=== PATIENT | female | born 1985 ===

== ENCOUNTER → 2023-05-25 12:30 | Outpatient (BNVA) | payer OTHER, MEDICAID, SELFPAY | PROVIDERS: PCP Nurse Practitioner Family; Visit Provider Urology ==

== ENCOUNTER 2023-12-18 13:31 | Outpatient (AMB) | payer MEDICAID, SELFPAY ==
--- NOTE | 2023-12-18 13:43 | A.OFFVIS_ITS ---
Intake Intake Visit Reasons: follow up/kidney stones Intake Note: Patient presents today for a follow-up on: Kidney Stones Meds- Tamsulosin Allergies to Antibiotic- ciprofloxacin, metoclopramide, Sulfa (Sulfonamide Antibiotics) Patient stated she was given Toradol after she was discharged from the ED Blood Thinners: None Industrial Editor Required: No Accompanied by: Mother Allergies ciprofloxacin Allergy (Mild, Verified 05/25/23 13:10) Unknown metoclopramide [From Reglan] Allergy (Mild, Verified 05/25/23 13:10) Unknown Sulfa (Sulfonamide Antibiotics) Allergy (Mild, Verified 05/25/23 13:10) Unknown tramadol Allergy (Mild, Verified 05/25/23 13:10) Unknown Medication List - Last Reconciled 12/18/23 by Leslie Smith MD cyclobenzaprine 10 mg PO TID PRN gabapentin 600 mg PO QID hydrochlorothiazide 25 mg PO QAM losartan 100 mg PO QAM naproxen 375 mg PO BID PRN oxycodone-acetaminophen 5-325 mg (Percocet) 1 tab PO Q6-8H PRN pantoprazole 40 mg PO DAILY HPI HPI Comments History of Present Illness Details Natasha is a 38 year old female who is here for evaluation for kidney stones. The patient had multiple ED visits to [facility] due to flank pain. She complains of intermittent left flank pain. I reviewed [facility] records. Renal US - 11/19/23-- Right kidney - 4mm stone, Left kidney 4mm stone, no hydronephrosis. CTAP wo IV contrast 12/01/23 and 12/14/23-- small bilateral kidney stones L>R. Left Kidney 4mm lower pole stone I have discussed ESWL. Discussed risks to include but not limited to, blood in the urine, bruising to the skin, kidney hematoma, possible need for another procedure if a stone fragment obstructs the ureter while passing, possible need to repeat procedure if stone is not completely fragmented. Plan:Left ESWL. KUB prior Review of Systems Const All systems reviewed & are unremarkable except as noted in HPI and below Reports no additional complaints Eyes Reports no additional complaints ENT Reports no additional complaints Card Denies dyspnea Resp Denies cough and Denies dyspnea GI Reports no additional complaints Reports no additional complaints Musc Reports no additional complaints Skin/Breast Denies rash and Denies unusual bruising Neuro Reports no additional complaints Psych Reports no additional complaints Endo Reports no additional complaints Liban/Lymph Reports no additional complaints Aller/Immun Reports no additional complaints Physical Exam Const General: cooperative, healthy appearing and no acute distress Orientation/consciousness: patient oriented x3 HEENT Head: Yes normal to inspection, Yes normocephalic and Yes atraumatic Eyes Conjunctivae: conjunctivae normal Neck Neck: Yes normal visual inspection and Yes trachea midline Chest Chest palpation & inspection: normal inspection of the chest Resp Effort & Inspection: normal respiratory effort Cardio Rate: regular rate GI Inspection: Yes normal to inspection Skin General skin exam: no rashes or lesions noted Neuro General: patient oriented x3 Extrem General: No edema Psych Appearance: grossly normal Results AMB Urinalysis, Automated UA Leukoctes 0 Destini/uL Last Edit by Jenifer Castro [facility] on 12/18/23 13 :54 UA Nitrite Negative Last Edit by Jenifer Castro [facility] on 12/18/23 13: 54 UA Urobilinogen 0.2 mg/dL Last Edit by Jenifer Castro [facility] on 4 13:54 UA Protein 0 mg/dL Last Edit by Jenifer Castro [facility] on 12/18/23 13:54 UA pH 6.5 Last Edit by Jenifer Castro [facility] on 12/18/23 13:54 UA Blood 200 Aniceto/uL Last Edit by Jenifer Castro [facility] on 12/18/23 13:5 4 UA Specific [place] 1.015 Last Edit by Jenifer Castro [facility] on 13:54 UA Ketone Negative Last Edit by Jenifer Castro [facility] on 12/18/23 13:5 4 UA Bilirubin 0 mg/dL Last Edit by Jenifer Castroantoine Castro [facility] on 12/18/23 13: 54 UA Glucose 0 mg/dL Last Edit by Jenifer Castroantoine Castro [facility] on 12/18/23 13:54 Results Reviewed Results Reviewed: Laboratory Last Values Urine pH (Auto) 6.5 12/18/23 13:52 Specific [place] (Auto) 1.015 12/18/23 13:52 Urine Protein (Auto) 0 mg/dL 12/18/23 13:52 Glucose (UA)(Auto) 0 mg/dL 12/18/23 13:52 Urine Ketones (Auto) Negative 12/18/23 13:52 Urine Blood (Auto) 200 Aniceto/uL 12/18/23 13:52 Urine Nitrite (Auto) Negative 12/18/23 13:52 Urine Bilirubin (Auto) 0 mg/dL 12/18/23 13:52 Urine Urobilinogen (Auto) 0.2 mg/dL 12/18/23 13:52 Leukocyte Esterase (Auto) 0 Destini/uL 12/18/23 13:52 Assessment & Plan Assessment & Plan (1) Bilateral kidney stones: Code(s): N20.0 - Calculus of kidney Plan Left ESWL percocet 5 mg # 6 naproxen 375 mg bid stop all NSAIDS 14 days prior to ESWL Orders: Orders AMB Urinalysis Automated 12/18/23 R33.9 - Retention of urine, unspecified, N20.0 - Calculus of kidney Medications: New naproxen 375 mg PO BID PRN 20 tabs 0RF pain oxycodone-acetaminophen 5-325 mg (Percocet) Partial Fill upon patient request. 1 tab PO Q6-8H PRN 6 tabs 0RF pain Patient Instructions: The patient had an opportunity to ask questions regarding treatment plan. All questions were answered. Imaging, Laboratory studies and physical exam results were discussed and reviewed in detail. No major barriers to understanding were identified. The patient expressed understanding and agreement with the above treatment plan. The patient is aware they should contact our office by phone for worsening of their current condition or the appearance of new symptoms. Compliance is encouraged with any medications and followup testing that is ordered. It is a privilege to be allowed the opportunity to participate in the urologic care of your patient. If you have any questions or concerns regarding treatment for the above conditions please do not hesitate to contact me. The office telephone contact is [phone]. This note is constructed in part using voice recognition software. While every effort has been made to ensure accuracy pheresis nurse errors may have been included. Yours sincerely, Leslie Smith MD Coding Level of Care Code New Pt Level 4 (83682) Diagnoses Bilateral kidney stones N20.0
== END 2023-12-18 14:51 | disposition home or self-care (01) ==
PROVIDERS: PCP Nurse Practitioner Family; Visit Provider Urology
DX: N20.0 Calculus of kidney (principal)
CPT/HCPCS: 99214

== ENCOUNTER → 2023-12-18 13:31 | Outpatient (BNVA) | payer MEDICAID, SELFPAY | PROVIDERS: PCP Nurse Practitioner Family; Visit Provider Urology | DX: N20.0 Calculus of kidney (principal) | CPT/HCPCS: 81003; 99212 ==

== ENCOUNTER 2024-01-04 12:03 | Outpatient (REF) | payer MEDICAID, SELFPAY ==
--- NOTE | ~2024-01-04 | XR_ITS ---
EXAMINATION: XR ABDOMEN KUB CLINICAL INDICATION: Renal calculus COMPARISON: None available. TECHNIQUE: 3 views of the abdomen. FINDINGS: The bowel gas pattern is normal with no evidence of ileus or obstruction. No unusual soft tissue calcifications are noted. The bones are unremarkable. XR/XR KUB IMPRESSION: Unremarkable examination.
== END 2024-01-04 12:04 | disposition home or self-care (01) ==
LOC: HO.XRAY 12:03
PROVIDERS: PCP Nurse Practitioner Family; Visit Provider Urology
DX: N20.0 Calculus of kidney (principal)
CPT/HCPCS: 74018

== ENCOUNTER 2024-01-06 08:06 | Day surgery (SDC) | payer MEDICAID, SELFPAY ==
[2024-01-06] VITALS (15 sets, daily range): BP systolic 150–201; BP diastolic 97–115; PULSE 68–91; RESP 16; TEMP 36.1–36.9; O2SAT 95–99; BMI 32.6
[2024-01-06] MEDS: Lactated Ringers 1,000 ML 100 ML IVCONT (08:56)
[2024-01-06] MEDS: Lactated Ringers 500 ML 999 ML IV (08:56)
--- NOTE | 2024-01-06 09:03 | P.CONAN_ITS ---
[facility] Active Problems Active Problems: All Active Problems (Updated 01/06/24 @ 08:28 by Bel Mclean) Flank pain (Acute) Bilateral kidney stones (Acute) Past Medical History Medical History Smoker Hypertension History of blood transfusion Functional capacity: independent ambulation Patient : No Surgical History Surgical History History of right oophorectomy History of hysterectomy History of carpal tunnel release [place] teeth extracted H/O lithotripsy Social History Social History Patient Tobacco Use Status: Current everyday Tobacco user Tobacco use type: Cigarette Cigarette Packs Per Day: 0.5 Cigarettes Per Day: 10.0 Years Smoked: 20 Smoked in Last 30 Days: Yes Use of substances other than those prescribed or required for medical reasons: No Are you DNR?: No Advance Directives: No Advance Directives Information Provided: Yes Meds Allergies Allergy/AdvReac Type Severity Reaction Status Date / Time ciprofloxacin Allergy Severe Vomiting Verified 01/06/24 08:32 metoclopramide [From Reglan] Allergy Severe Agitated Verified 01/06/24 08:32 tramadol Allergy Intermediate Hives Verified 01/06/24 08:32 Sulfa (Sulfonamide Allergy Mild Family Verified 01/06/24 08:32 Antibiotics) history Active Medications: Current Medications Lactated Ringer's (Lr) 1,000 mls @ 100 mls/hr IVCONT .Q10H MARIO Last Admin: 01/06/24 08:56 Dose: 100 mls/hr Home Medications Medication Instructions Recorded Confirmed Last Taken Type cyclobenzaprine 10 mg tablet 10 mg PO TID PRN Pain 05/25/23 01/06/24 Unknown History gabapentin 600 mg tablet 600 mg PO QID 05/25/23 01/06/24 Unknown History losartan 100 mg tablet 100 mg PO QAM 05/25/23 01/06/24 01/05/24 History pantoprazole 40 mg tablet,delayed 40 mg PO DAILY 05/25/23 01/06/24 Unknown History release Exam Height,Weight and Vital Signs: Height 5 ft 1 in Weight 78.29 kg Last Vital Signs Temp 98.4 F 01/06/24 08:35 Pulse 79 01/06/24 08:35 Resp 16 01/06/24 08:35 BP 163/115 H 01/06/24 08:35 Pulse Ox 99 01/06/24 08:35 O2 Del Method Room Air 01/06/24 08:35 Airway Mallampati Class: III TM Dist: >3cm Neck ROM: Full Heart: RRR Lungs: CTA Assessment and Plan Assessment Anesthesia Assessment: Anesthesia Plan Discussed and Smoking Cess. Discussed Final Anesthetic Review ASA Class: II Final Preanesthetic Review: Meds/Allgs Chart Reviewed, Consent Obtained/Reviewed and Anes Risks/Benef Reviewed Patient Risk: Low Anesthetic Plan Anesthetic Plan: GA Disposition: Standard PACU
--- NOTE | 2024-01-06 09:37 | MHC.SHP ---
Pre-Procedural Eval Section A - 24 Hr Update-Section A only Date of Service: 01/06/24 The patient is an INPATIENT: No The patient has been examined within 24 hours of the surgical procedure. The History & Physical has been completed within 30 days and I have reviewed it.: Yes Section B - Complete if H&P > 30 days Chief Complaint: Calculus of kidney Allergies: Allergies Allergy/AdvReac Type Severity Reaction Status Date / Time ciprofloxacin Allergy Severe Vomiting Verified 01/06/24 08:32 metoclopramide [From Reglan] Allergy Severe Agitated Verified 01/06/24 08:32 tramadol Allergy Intermediate Hives Verified 01/06/24 08:32 Sulfa (Sulfonamide Allergy Mild Family Verified 01/06/24 08:32 Antibiotics) history Plan Diagnosis/Plan: Unchanged I have reviewed the history and physical and performed a pertinent physical examination on my patient. No changes have occurred unless specified. Left ESWL. Discussed risks to include but not limited to, blood in the urine, bruising to the skin, kidney hematoma, possible need for another procedure if a stone fragment obstructs the ureter while passing, possible need to repeat procedure if stone is not completely fragmented. Time Spent With Patient Time: Total time managing care of this patient today ____ minutes.
--- NOTE | 2024-01-06 10:13 | W.PM.OPN ---
Operative Note Operative Note Date of Service: 01/06/24 Narrative: PreOperative Diagnosis:? ? Left Renal stone Post Operative Diagnosis:?Left? Renal stone Procedure:?Left? ESWL Surgeon:?Dr Leslie Smith Anesthesia:? General Indications for procedure: The patient understands there is a risk of bruising or hematoma to the kidney, infection, and stone migration following the procedure and subsequent intervention may be required.? - Imaging Left kidney stone 4 x 5 mm stone, lower pole Procedure: After informed consent was verified the patient was brought to the operating room and placed in a supine position.? Anesthesia was performed per protocol. Safety pause time-out was performed. Imaging was displayed in the room and laterality confirmed. ESWL was performed.?The stone was visualized on Ultrasound.? Shockwave lithotripsy was performed, after the first 300 shocks a pause for 3 minutes.? A total of 2500 shocks to a maximum of power of 18 with a maximum rate of 120 hertz.? Some fragmentation of the stone was appreciated. The patient tolerated the procedure well and was transferred to the recovery area upon completion. Complications: None
[2024-01-06] MEDS: fentaNYL citrate/PF 100 MCG/2 ML VIAL 25 MCG IVPUSH ×6 (10:35→11:42)
[2024-01-06] MEDS: oxyCODONE HCl Immed Release 5 MG TABLET 10 MG PO (10:38)
--- NOTE | 2024-01-06 11:17 | HO.POSTANES ---
Post Anesthesia Evaluation Post Anesthesia Evaluation Vital Signs: Vital Signs Temp Pulse Resp BP Pulse Ox O2 Del Method 01/06/24 10:55 70 16 177/110 H 96 Room Air 01/06/24 10:50 83 16 187/105 H 97 Room Air 01/06/24 10:45 82 16 177/110 H 97 Room Air 01/06/24 10:40 72 16 173/101 H 96 Room Air 01/06/24 10:40 16 01/06/24 10:35 68 16 201/105 H 96 Room Air 01/06/24 10:35 16 01/06/24 10:29 69 16 191/107 H 95 Room Air 01/06/24 10:24 97.6 F 78 16 175/115 H 95 Room Air 01/06/24 08:35 98.4 F 79 16 163/115 H 99 Room Air Anesthesia: General Endotracheal-GETA and General LMA Mental Status: Awake Pain Control: Satisfactory Nausea/Vomiting: None Hydration: Adequate Anesthesia-Related Issues: No Anes. Related Issues
--- NOTE | 2024-01-06 11:17 | HO.POSTANES ---
Post Anesthesia Evaluation Post Anesthesia Evaluation Date of Service: 01/06/24 Vital Signs: Vital Signs Temp Pulse Resp BP Pulse Ox O2 Del Method 01/06/24 10:55 70 16 177/110 H 96 Room Air 01/06/24 10:50 83 16 187/105 H 97 Room Air 01/06/24 10:45 82 16 177/110 H 97 Room Air 01/06/24 10:40 72 16 173/101 H 96 Room Air 01/06/24 10:40 16 01/06/24 10:35 68 16 201/105 H 96 Room Air 01/06/24 10:35 16 01/06/24 10:29 69 16 191/107 H 95 Room Air 01/06/24 10:24 97.6 F 78 16 175/115 H 95 Room Air 01/06/24 08:35 98.4 F 79 16 163/115 H 99 Room Air Anesthesia: General LMA Mental Status: Awake Pain Control: Satisfactory Nausea/Vomiting: None Hydration: Adequate Anesthesia-Related Issues: No Anes. Related Issues
== END 2024-01-06 12:24 | disposition home or self-care (01) ==
PROVIDERS: Visit Provider Urology
PROC: (CPT 50590; principal; 2024-01-06 09:40)
DX: N20.0 Calculus of kidney (principal); Z87.442 Personal history of urinary calculi; I10 Essential (primary) hypertension; Z79.899 Other long term (current) drug therapy; Z88.1 Allergy status to other antibiotic agents; Z88.2 Allergy status to sulfonamides; Z88.8 Allergy status to other drugs, medicaments and biological substances; F17.210 Nicotine dependence, cigarettes, uncomplicated
CPT/HCPCS: 50590; J0131; J0690; J1940; J2250; J2405; J2704; J3010

== ENCOUNTER → 2024-01-06 08:06 | Outpatient (BNV) | payer MEDICAID, SELFPAY | PROVIDERS: Visit Provider Urology | DX: N20.0 Calculus of kidney (principal) | CPT/HCPCS: 50590 ==

== ENCOUNTER 2024-02-15 11:22 | Outpatient (AMB) | payer MEDICAID, SELFPAY ==
--- NOTE | 2024-02-15 12:00 | A.OFFVIS_ITS ---
Intake Intake Visit Reasons: S/P ESWL/Ultrasound Intake Note: Patient presents today for a follow-up on S/P ESWL/Ultrasound Meds- None Allergies to Antibiotic- Cipro, Sulfa Blood Thinner- None Supervisor Word Processing Required: No Accompanied by: Self / Same As Patient Allergies ciprofloxacin Allergy (Severe, Verified 02/15/24 12:06) Vomiting metoclopramide [From Reglan] Allergy (Severe, Verified 02/15/24 12:06) Agitated tramadol Allergy (Intermediate, Verified 02/15/24 12:06) Hives Sulfa (Sulfonamide Antibiotics) Allergy (Mild, Verified 02/15/24 12:06) Family history HPI HPI Comments History of Present Illness Details 02/15/2024--the patient is status post le ft ESWL on 01/06/2024. She is being evaluated for bilateral nephrolithiasis. States she is doing well. She has not had follow-up imaging as yet. I have discussed diet modification. Will start vitamin B6 100 mg. Plan metabolic workup, follow-up in 3 months, ultrasound, renal prior Review of chart 12/18/2023--Natasha is a 38 year old fema le who is here for evaluation for kidney stones. The patient had multiple ED visits to [facility] due to flank pain. She complains of intermittent left flank pain. I reviewed [facility] records. Renal US - 11/19/23-- Right kidney - 4mm stone, Left kidney 4mm stone, no hydronephrosis. CTAP wo IV contrast 12/01/23 and 12/14/23-- small bilateral kidney stones L>R. Left Kidney 4mm lower pole stone. I have discussed ESWL. Discussed risks to include but not limited to, blood in the urine, bruising to the skin, kidney hematoma, possible need for another procedure if a stone fragment obstructs the ureter while passing, possible need to repeat procedure if stone is not completely fragmented. Plan:Left ESWL. KUB prior 02/15/2024--Plan--follow-up in 3 months, 24 hour urine and renal ultrasound prior [facility] Medical History Smoker Hypertension History of blood transfusion Surgical History History of right oophorectomy History of hysterectomy History of carpal tunnel release [place] teeth extracted H/O lithotripsy Social History Patient Tobacco Use Status: Current everyday Tobacco user Tobacco use type: Cigarette Cigarette Packs Per Day: 0.5 Cigarettes Per Day: 10.0 Years Smoked: 20 Results AMB Urinalysis, Automated UA Leukoctes 0 Destini/uL Last Edit by Jenifer Castro CMA on 02/15/24 12 :09 UA Nitrite Negative Last Edit by Jenifer Castro CMA on 02/15/24 12: 09 UA Urobilinogen 3.5 mg/dL Last Edit by Jenifer Castro CMA on 4 12:09 UA Protein 0 mg/dL Last Edit by Jenifer Castro CMA on 02/15/24 12:09 UA pH 7.5 Last Edit by Jenifer Castro CMA on 02/15/24 12:09 UA Blood 0 Aniceto/uL Last Edit by Jenifer Castro CMA on 02/15/24 12:09 UA Specific [place] 1.005 Last Edit by Jenifer Castro CMA on 12:09 UA Ketone Negative Last Edit by Jenifer Castro CMA on 02/15/24 12:0 9 UA Bilirubin 0 mg/dL Last Edit by Jenifer Castro CMA on 02/15/24 12: 09 UA Glucose 0 mg/dL Last Edit by Jenifer Castro CMA on 02/15/24 12:09 Results Reviewed Results Reviewed: Laboratory Last Values Urine pH (Auto) 7.5 02/15/24 12:08 Specific [place] (Auto) 1.005 02/15/24 12:08 Urine Protein (Auto) 0 mg/dL 02/15/24 12:08 Glucose (UA)(Auto) 0 mg/dL 02/15/24 12:08 Urine Ketones (Auto) Negative 02/15/24 12:08 Urine Blood (Auto) 0 Aniceto/uL 02/15/24 12:08 Urine Nitrite (Auto) Negative 02/15/24 12:08 Urine Bilirubin (Auto) 0 mg/dL 02/15/24 12:08 Urine Urobilinogen (Auto) 3.5 mg/dL 02/15/24 12:08 Leukocyte Esterase (Auto) 0 Destini/uL 02/15/24 12:08 Assessment & Plan Assessment & Plan (1) Bilateral kidney stones: Code(s): N20.0 - Calculus of kidney Plan follow-up in 3 months, 24 hour urine and renal ultrasound prior Orders: Orders AMB Urinalysis Automated 02/15/24 R33.9 - Retention of urine, unspecified US renal BI 2 Months R10.9 - Unspecified abdominal pain, N20.0 - Calculus of kidney Medications: New pyridoxine (vitamin B6) 100 mg PO DAILY 90 tabs 3RF Patient Instructions: The patient had an opportunity to ask questions regarding treatment plan. All questions were answered. No major barriers to understanding were identified. The patient expressed understanding and agreement with the above treatment plan. The patient is aware they should contact our office by phone for worsening of their current condition or the appearance of new symptoms. Compliance is e ncouraged with any medications and followup testing that is ordered. It is a privilege to be allowed the opportunity to participate in the urologic care of your patient. If you have any questions or concerns regarding treatment for the above conditions please do not hesitate to contact me. The office telephone contact is [phone]. This note is constructed in part using voice recognition software. While every effort has been made to ensure accuracy stud driver errors may have been included. Yours sincerely, Leslie Smith MD Coding Level of Care Code Global (75862) Diagnoses Bilateral kidney stones N20.0
== END 2024-02-15 12:29 | disposition home or self-care (01) ==
PROVIDERS: Visit Provider Urology
DX: N20.0 Calculus of kidney (principal)
CPT/HCPCS: 99024

== ENCOUNTER → 2024-02-15 11:27 | Outpatient (BNVA) | payer MEDICAID, SELFPAY | PROVIDERS: Visit Provider Urology | DX: R33.9 Retention of urine, unspecified (principal) | CPT/HCPCS: 81003; 99212 ==

== ENCOUNTER 2024-03-31 15:31 | Outpatient (REF) | payer MEDICAID, SELFPAY ==
--- NOTE | ~2024-03-31 | US_ITS ---
EXAMINATION: US RETROPERITONEAL COMPLETE (RENAL) CLINICAL INFORMATION: Unspecified abdominal pain. Status post ESWL on 01/06/2024. History of kidney stones. COMPARISON: None available. TECHNIQUE: Real-time imaging of the kidneys and bladder. FINDINGS: RIGHT KIDNEY: 11.8 x 5.0 x 5.2 cm (SAG x AP x TRV). The kidney is normal in size, contour, and echogenicity. Renal cortical thickness is normal. No focal parenchymal lesions. No hydronephrosis. 0.4 x 0.4 x 0.4 cm nonobstructing calculus is seen in the lower pole. LEFT KIDNEY: 11.0 x 5.7 x 5.0 cm (SAG x AP x TRV). The kidney is normal in size, contour, and echogenicity. Renal cortical thickness is normal. No calculi or focal parenchymal lesions. No hydronephrosis. US/US retroperitoneal comp IMPRESSION: 1. 0.4 cm nonobstructing calculus in the lower pole of the right kidney. 2. Normal appearance of the left kidney.
== END 2024-03-31 15:32 | disposition home or self-care (01) ==
LOC: HO.US 15:31
PROVIDERS: Visit Provider Urology
DX: R10.9 Unspecified abdominal pain (principal); N20.0 Calculus of kidney
CPT/HCPCS: 76770

== ENCOUNTER 2024-07-13 10:34 | Outpatient (REF) | payer MEDICAID, SELFPAY ==
[2024-07-13 12:24] LABS: Appearance Urine Clear; Color Urine Yellow; Glucose Urine UA Negative (Negative); Leukocyte Esterase Urine Negative (Negative); Nitrite Urine Negative (Negative); PH 5.5 (5.0-9.0); Urine Blood Negative (Negative); Urine Ketones Negative (Negative); Urine Protein Negative (Neg-Trace)
[2024-07-13 12:31] LABS: Bacteria Urine Trace (None Seen); Hyaline Casts Urine 0-2 /LPF (0-2); RBC Urine 0-2 /HPF (0-2); WBC Urine 0-5 /HPF (0-5)
== END 2024-07-13 10:35 | disposition home or self-care (01) ==
LOC: HO.LAB 10:34
PROVIDERS: PCP Nurse Practitioner Family; Visit Provider Urology
DX: R10.9 Unspecified abdominal pain (principal); N12 Tubulo-interstitial nephritis, not specified as acute or chronic
CPT/HCPCS: 81001; 87086

== ENCOUNTER 2024-08-08 12:56 | Outpatient (AMB) | payer MEDICAID, SELFPAY ==
--- NOTE | 2024-08-08 13:35 | MHC.OFFVIS ---
Intake Visit Reasons: follow up/litholink/U/S(SET) Intake Note: Patient is Present for Follow Up Ultrasound Patient has not done Litholink. Urology Medication: Tamsulosin, Vitamin B6 Antibiotic Allergies:Sulfa, Ciprofloxacin Blood Thinners:Plavix, Asprin Patient states she was at [facility] ER this weekend and was informed that she has two stones on her RIGHT side that are very small. Allergies ciprofloxacin Allergy (Severe, Verified 02/15/24 12:06) Vomiting metoclopramide [From Reglan] Allergy (Severe, Verified 02/15/24 12:06) Agitated tramadol Allergy (Intermediate, Verified 02/15/24 12:06) Hives Sulfa (Sulfonamide Antibiotics) Allergy (Mild, Verified 02/15/24 12:06) Family history Medication List - Last Reconciled 08/08/24 by Leslie Smith MD amlodipine 10 mg PO DAILY aspirin 81 mg PO DAILY chlorthalidone 25 mg PO QAM clopidogrel (Plavix) 75 mg PO DAILY cyclobenzaprine 10 mg PO TID PRN gabapentin 600 mg PO QID losartan 100 mg PO QAM ondansetron 8 mg PO BID-TID PRN 14 days oxybutynin chloride 5 mg PO Q8H PRN oxycodone 5 mg PO Q6-8H PRN pantoprazole 40 mg PO DAILY prednisone 20 mg PO DAILY 3 days pyridoxine (vitamin B6) 100 mg PO DAILY tamsulosin 0.4 mg PO BEDTIME 14 days HPI Comments Details: 08/08/24--Natasha is followed for nephrolithiasis. She has not completed 24 hour urine, states her mother threw it out by mistake. She has been in the emergency room in May and lost recently for the weekend. I reviewed CT scan results from May emergency room visit CTAP-multiple right renal calculi under 3 mm, left kidney no kidney stones. No hydronephrosis. The patient she had pain again on her right side and was passing a right kidney stone she states the checked another CT scan and told her that there were 2 stones in the right kidney. She states that since she was last seen in the office she had brain surgery for an aneurysm 03/19/2024 and is currently on blood thinners Plavix and aspirin. She is concerned about pain when she is passing stones, tamsulosin and 8 tablets oxycodone p.r.n. sent to pharmacy. 24 hour urine telehealth follow-up to review results. Review of chart 02/15/2024--the patient is status post left ESWL on 01/06/2024. She is being evaluated for bilateral nephrolithiasis. States she is doing well. She has not had follow-up imaging as yet. I have discussed diet modification. Will start vitamin B6 100 mg. Plan metabolic workup, follow-up in 3 months, ultrasound, renal prior 12/18/2023--Natasha is a 38 year old female who is here for evaluation for kidney stones. The patient had multiple ED visits to [facility] due to flank pain. She complains of intermittent left flank pain. I reviewed [facility] records. Renal US - 11/19/23-- Right kidney - 4mm stone, Left kidney 4mm stone, no hydronephrosis. CTAP wo IV contrast 12/01/23 and 12/14/23-- small bilateral kidney stones L>R. Left Kidney 4mm lower pole stone. I have discussed ESWL. Discussed risks to include but not limited to, blood in the urine, bruising to the skin, kidney hematoma, possible need for another procedure if a stone fragment obstructs the ureter while passing, possible need to repeat procedure if stone is not completely fragmented. Plan:Left ESWL. KUB prior COUNT INCLUDES THE [facility] Medical History Smoker Hypertension History of blood transfusion Surgical History History of right oophorectomy History of hysterectomy History of carpal tunnel release [place] teeth extracted H/O lithotripsy Social History Patient Tobacco Use Status: Current everyday Tobacco user Tobacco use type: Cigarette Cigarette Packs Per Day: 0.5 Cigarettes Per Day: 10.0 Years Smoked: 20 Review of Systems Const All systems reviewed & are unremarkable except as noted in HPI and below Reports no additional complaints Eyes Reports no additional complaints ENT Reports no additional complaints Card Reports no additional complaints Resp Reports no additional complaints GI Reports no additional complaints Reports as per HPI Musc Reports no additional complaints Skin/Breast Reports system reviewed and no additional complaints, except as documented Neuro Reports no additional complaints Psych Reports no additional complaints Endo Reports no additional complaints Liban/Lymph Reports no additional complaints Aller/Immun Reports no additional complaints Results AMB Urinalysis, Automated UA Leukoctes 0 Destini/uL Last Edit by Brissa Brower, A on 08/08/24 13:49 UA Nitrite Negative Last Edit by Brissa Brower, A on 08/08/24 13:49 UA Urobilinogen 1 mg/dL Last Edit by Brissa Brower, A on 08/08/24 13:49 UA Protein 15 mg/dL Last Edit by Brissa Brower, A on 08/08/24 13:49 UA pH 6.0 Last Edit by Brissa Brower, A on 08/08/24 13:49 UA Blood 200 Aniceto/uL Last Edit by Brissa Brower, A on 08/08/24 13:49 UA Specific [place]o 1.030 Last Edit by Brissa Brower, A on 08/08/24 13:49 UA Ketone Positive Last Edit by Brissa Brower, A on 08/08/24 13:49 UA Bilirubin 0 mg/dL Last Edit by Brissa Brower, A on 08/08/24 13:49 UA Glucose 0 mg/dL Last Edit by Brissa Brower, A on 08/08/24 13:49 Results Reviewed Results Reviewed: Laboratory Last Values Urine pH (Auto) 6.0 08/08/24 13:47 Specific [place] (Auto) 1.030 08/08/24 13:47 Urine Protein (Auto) 15 mg/dL 08/08/24 13:47 Glucose (UA)(Auto) 0 mg/dL 08/08/24 13:47 Urine Ketones (Auto) Positive 08/08/24 13:47 Urine Blood (Auto) 200 Aniceto/uL 08/08/24 13:47 Urine Nitrite (Auto) Negative 08/08/24 13:47 Urine Bilirubin (Auto) 0 mg/dL 08/08/24 13:47 Urine Urobilinogen (Auto) 1 mg/dL 08/08/24 13:47 Leukocyte Esterase (Auto) 0 Destini/uL 08/08/24 13:[address] scan report dated 06/14/2024 performed at [facility] [place] right kidney multiple renal calculi measuring under 3 mm left kidney within normal limits no hydronephrosis. Assessment & Plan Assessment & Plan (1) Flank pain: Code(s): R10.9 - Unspecified abdominal pain Category: Medical (2) Kidney stone: Code(s): N20.0 - Calculus of kidney Category: Medical (3) Renal colic: Code(s): N23 - Unspecified renal colic Category: Medical Plan tamsulosin and 8 tablets oxycodone p.r.n. sent to pharmacy. 24 hour urine telehealth follow-up to review results. Orders: Orders AMB Urinalysis Automated Today Z13.9 - Encounter for screening, unspecified Medications: New oxycodone Partial Fill upon patient request. 5 mg PO Q6-8H PRN 8 tabs 0RF pain Changed From tamsulosin 0.4 mg PO BEDTIME 14 days 14 caps 0RF N20.0 - Calculus of kidney To tamsulosin 0.4 mg PO BEDTIME 14 days PRN 14 caps 0RF for passing kidney stones N20.0 - Calculus of kidney Discontinued prednisone Discontinued Reason: Patient Completed Course 20 mg PO DAILY 3 days 3 tabs 0RF N20.0 - Calculus of kidney Patient Instructions: The patient had an opportunity to ask questions regarding treatment plan. The patient expressed understanding and agreement with the above treatment plan. The patient is aware they should contact our office by phone for worsening of their current condition or the appearance of new symptoms. Compliance is encouraged with any medications and followup testing that is ordered. It is a privilege to be allowed the opportunity to participate in the urologic care of your patient. If you have any questions or concerns regarding treatment for the above conditions please do not hesitate to contact me. The office telephone contact is [phone]. This note is constructed in part using voice recognition software. While every effort has been made to ensure accuracy carcass trimmer errors may have been included. Yours sincerely, Leslie Smith MD Coding Level of Care Code Est Pt Level 4 (65493) Diagnoses Flank pain R10.9 Kidney stone N20.0 Renal colic N23
== END 2024-08-08 14:12 | disposition home or self-care (01) ==
PROVIDERS: Referring Provider Nurse Practitioner Family; Visit Provider Urology
DX: R10.9 Unspecified abdominal pain (principal); N20.0 Calculus of kidney; N23 Unspecified renal colic; Z13.9 Encounter for screening, unspecified
CPT/HCPCS: 99214

== ENCOUNTER → 2024-08-08 12:56 | Outpatient (BNVA) | payer MEDICAID, SELFPAY | PROVIDERS: Visit Provider Urology | DX: N20.0 Calculus of kidney (principal); R10.9 Unspecified abdominal pain; N23 Unspecified renal colic | CPT/HCPCS: 81003; 99212 ==

== ENCOUNTER 2024-08-25 14:19 | Outpatient (REF) | payer MEDICAID, SELFPAY ==
[2024-08-25 15:54] LABS: Appearance Urine Clear; Color Urine Yellow; Glucose Urine UA Negative (Negative); Leukocyte Esterase Urine Trace (Negative); Nitrite Urine Negative (Negative); PH 6.5 (5.0-9.0); UMIC TRIGGER UA YES; Urine Blood Negative (Negative); Urine Ketones Trace mg/dL (Negative); Urine Protein Negative (Neg-Trace)
[2024-08-25 15:59] LABS: Bacteria Urine 1+ (None Seen); Hyaline Casts Urine 0-2 /LPF (0-2); RBC Urine 0-2 /HPF (0-2); WBC Urine 0-5 /HPF (0-5)
== END 2024-08-25 14:20 | disposition home or self-care (01) ==
LOC: HO.LAB 14:19
PROVIDERS: Visit Provider Urology
DX: R10.9 Unspecified abdominal pain (principal); N20.0 Calculus of kidney; N12 Tubulo-interstitial nephritis, not specified as acute or chronic
CPT/HCPCS: 81001; 87086

== ENCOUNTER 2024-09-07 14:49 | Outpatient (REF) | payer MEDICAID, SELFPAY ==
--- NOTE | ~2024-09-07 | US_ITS ---
EXAMINATION: US RETROPERITONEAL LIMITED (RENAL ONLY) CLINICAL INFORMATION: Renal colic. COMPARISON: Retroperitoneal ultrasound dated 03/31/2024. TECHNIQUE: Grayscale, Doppler, and cine images of the right and left kidney. FINDINGS: RIGHT KIDNEY: 10 x 4.7 x 4.4 cm (SAG x AP x TRV). The kidney is normal in size, contour, and echogenicity. Renal cortical thickness is normal. No calculi or focal parenchymal lesions. No hydronephrosis. LEFT KIDNEY: 11.4 x 5.3 x 4.8 cm (SAG x AP x TRV). The kidney is normal in size, contour, and echogenicity. Renal cortical thickness is normal. No calculi or focal parenchymal lesions. No hydronephrosis. US/US renal BI IMPRESSION: No hydronephrosis or nephrolithiasis. Electronically signed by: Veto Salinas MD 09/08/2024 08:44 AM EDT
== END 2024-09-07 14:50 | disposition home or self-care (01) ==
LOC: HO.US 14:49
PROVIDERS: Visit Provider Urology
DX: N20.0 Calculus of kidney (principal); R10.9 Unspecified abdominal pain
CPT/HCPCS: 76775

== ENCOUNTER 2024-11-11 11:00 | Outpatient (REF) | payer MEDICAID, SELFPAY ==
[2024-11-11 11:43] LABS: Appearance Urine Clear; Color Urine Yellow; Glucose Urine UA Negative (Negative); Leukocyte Esterase Urine Negative (Negative); Nitrite Urine Negative (Negative); Specific Gravity - Urine 1.015 (1.005-1.025); Urine Blood Negative (Negative); Urine Ketones Negative (Negative); Urine Protein Negative (Neg-Trace)
[2024-11-11 11:45] LABS: Bacteria Urine 2+ (None Seen); RBC Urine 0-2 /HPF (0-2)
== END 2024-11-11 11:01 | disposition home or self-care (01) ==
LOC: HO.LAB 11:00
PROVIDERS: Visit Provider Urology
DX: N20.0 Calculus of kidney (principal); N12 Tubulo-interstitial nephritis, not specified as acute or chronic
CPT/HCPCS: 81001; 87086

== ENCOUNTER 2025-03-15 14:03 | Outpatient (REF) | payer MEDICAID, SELFPAY ==
[2025-03-15 15:02] LABS: Appearance Urine Clear; Color Urine Yellow; Glucose Urine UA Negative (Negative); Leukocyte Esterase Urine Negative (Negative); Nitrite Urine Negative (Negative); PH 5.5 (5.0-9.0); UMIC TRIGGER UA YES; Urine Blood Large (3+) (Negative); Urine Ketones Negative (Negative); Urine Protein Negative (Neg-Trace)
[2025-03-15 15:05] LABS: Bacteria Urine None Seen (None Seen); Hyaline Casts Urine 0-2 /LPF (0-2); RBC Urine >20 /HPF (0-2); WBC Urine 0-5 /HPF (0-5)
--- OUTSIDE RECORDS SUMMARY | 2025-03-15 16:49 | XMS_ITS ---
Author Organization [employer] [facility] Address [address] [place] [address] 7 [place] [address] Care Team Providers Care Rn Emergency Name Role Phone Sushila Griffin Unavailable Unavailable Kanwal East DO Primary Care Provider [phone] CM Complex Status:Outreach In Progress (Enrolling) Start date:03/03/2025 Enrollment reason:ADT Feed Case Team Name Relationship Phone Mirtha Sainz (Responsible Staff) Continued Care and Services Coordination
--- OUTSIDE RECORDS SUMMARY | 2025-03-15 16:49 | XMS_ITS | Encounter Summary ---
Author Organization [employer] [facility] Address [address] [facility] 7t [place] [address] Care Team Providers Care Cooker Operator Name Role Phone Shefali Winston Primary Care Provider Unavailable Sushila Griffin Unavailable Unavailable Jose Dunen Unavailable Unavail able Kanwal East DO Primary Care Provider [phone] Encounter Details Date Type Department Care Team (Late st Contact Info) Description 12/15/2023 Orders Only [facility] [address] [place] [address] Shefali Winston FNP Social History Tobacco Use Types Packs/Day Years Used Date Smoking Tobacco: Every Day Cigarettes Passive Smoke Exposure: Current Smokeless Tobacco: Never Alcohol Use Standard Drinks/Week Comments Never 0 (1 standard drink = 0.6 oz pur e alcohol) PHQ-2 Answer Date Recorded Patient Health Questionnaire-2 Score 0 06/10/2023 Alcohol Answer Date Recorded How often do you have a drink containing alcohol ? 0 11/17/2023 How many drinks containing a lcohol do you have on a typical day when you are drinking? 0 11/17/2023 How often do you have six or more drinks on one occasion? 0 11/17/2023 Housing Stability Answer Date Recorded What is your housing situation today? I have dilma chiang 09/15/[address] you li ve. Do you have problems with any of the following? None of the above 09/15/2023 Food Insecurity Answer Date Recorded Within the past 12 months, y ou worried that your food would run out before you got money to buy more: Never True 09/15/2023 Within the past 12 months,th e food you bought just didn't last and you didn't have enough money to get more: Never True Transportation Answer Date Recorded In the past 12 months, has l ack of transportation kept you from medical appts, meetings, work or from getting things needed for daily living? No 09/15/2023 Intimate Partner Violence Answer Date R ecorded Within the last year, have y ou been afraid of your partner or ex-partner? 2 11/17/2023 Within the last year, have y ou been humiliated or emotionally abused in other ways by your partner or ex-partner? 2 Within the last year, have y ou been kicked, hit, slapped, or otherwise physically hurt by your partner or ex-partner? 2 11/17/2023 Within the last year, have y ou been raped or forced to have any kind of sexual activity by your partner or ex-partner? 2 11/17/2023 Utilities Answer Date Recorded In the past 12 months, has t he electric, gas, oil or water company threatened to shut off services in your home? No 09/15/2023 Depression Answer Date Recorded Patient Health Questionnaire-2 Score 0 06/10/2023 Education Answer Date Recorded What is the highest level of school you have completed or the highest degree you have received? Bachelor's degree (e.g., BA, AB, BS) 04/01/2023 Comments Unknown Sex and Gender Information Value Date Recorded Sex Assigned at Female 03/31/2023 2:46 PM EDT Legal Sex Female 8:33 PM EDT Gender Identity Female 03/31/2023 2:46 PM EDT Sexual Orientation Straight 03/31/2023 2: 46 PM EDT documented as of this encounter Plan of Treatment Upcoming Encounters Date Type Department Care Team (Late st Contact Info) Description 03/30/2025 9:30 AM EDT Telemedicine [facility] MEDICAL [address] [place] [address] Ning Chau CNP [address] [place] [address] documented as of this encounter Procedures Procedure Name Priority Date/Time Associated Diagnosis Comments CBC WITH AUTO DIFFERENTIAL Routine 12/14/2023 COMPREHENSIVE METABOLIC PANEL Routine 12/14/2023 documented in this encounter Results * CBC auto differential (12/14/2023) Blood Venous blood specimen / Unknown Shefali Winston [facility] BLOOD ORDERABLES E dited Result - Final * Comprehensive Metabolic Panel (12/14/2023) Blood Venous blood specimen / Unknown Shefali Wniston [facility] BLOOD ORDERABLES E dited Result - Final documented in this encounter Visit Diagnoses Not on filedocumented in this encounter Care Teams Cooker Operator Relationship Specialty Start Date End Date Shefali Winston FNP PCP - General Family Medicine 12/02/22 08/24/24 Kanwal East DO [address] [place] [id number] PCP - General Family Medicine 08/25/24 Sushila Griffin Community Health Worker 04/06/23 Jose Dunne LICSW Community Health Worker Case Management 01/08/24 02/19/24 documented as of this encounter
--- OUTSIDE RECORDS SUMMARY | 2025-03-15 16:49 | XMS_ITS | Encounter Summary ---
Author Organization [facility] Address [address] [place] [address] Care Team Providers Care Paint And Table Edger Name Role Phone Shefali Winston Primary Care Provider Unavailable Sushila Griffin Unavailable Unavailable Kanwal East DO Primary Care Provider [phone] Encounter Details Date Type Department Care Team (Late st Contact Info) Description 08/22/2024 Orders Only [facility] [address] [place] [address] Shefali Winston FNP Social History Tobacco Use Types Packs/Day Years Used Date Smoking Tobacco: Every Day Cigarettes Passive Smoke Exposure: Current Smokeless Tobacco: Never Comments:States using nicoti ne patches now trying not to smoke when wearing Alcohol Use Standard Drinks/Week Comments Yes 0 (1 standard drink = 0.6 oz pur e alcohol) fernanda PHQ-2 Answer Date Recorded Patient Health Questionnaire-2 [...] 9:30 AM EDT Telemedicine [facility] MEDICAL [address] [place] [address] Ning Chau, JESUS [address] [place] [address] documented as of this encounter Procedures Procedure Name Priority Date/Time Associated Diagnosis Comments CT ABDOMEN PELVIS WO CONTRAST Routine 08/07/2024 8:49 AM EDT documented in this encounter Results * CT Abdomen Pelvis w/o Contrast (08/07/2024 8:49 AM EDT) Anatomical Region Laterality Modality Body, Pelvis, Abdomen Computed T omography Shefali BROOKS IMG CT PROCEDURES Meka l Result documented in this encounter Visit Diagnoses Not on filedocumented in this encounter Care Teams Paint And Table Edger Relationship Specialty Start Date End Date Shefali Winston FNP PCP - General Family Medicine 12/02/22 08/24/24 Kanwal East DO [address] [place] [address] PCP - General Family Medicine 08/25/24 Sushila Griffin Community Health Worker 04/06/23 documented as of this encounter
--- OUTSIDE RECORDS SUMMARY | 2025-03-15 16:49 | XMS_ITS | Encounter Summary ---
Author Organization [employer] [facility] Address [address] [facility] 7t [place] [address] Care Team Providers Care Clinic Mgr Name Role Phone Shefali Winston Primary Care Provider Unavailable Sushila Griffin Unavailable Unavailable Jose Dunne Unavailable Unavail able Kanwal East DO Primary Care Provider [phone] Encounter Details Date Type Department Care Team (Late st Contact Info) Description 12/16/2023 Orders Only [facility] [address] [place] [address] Shefali Winston FNP Social History Tobacco Use [...] Info) Description 03/30/2025 9:30 AM EDT Tele[facility]icine [facility] [address] [place] [address] Ning Chau CNP [address] [place] [address] documented as of this encounter Procedures Procedure Name Priority Date/Time Associated Diagnosis Comments CT ABDOMEN PELVIS WO CONTRAST Routine 12/14/2023 documented in this encounter Results * CT Abdomen Pelvis w/o Contrast (12/14/2023) Anatomical Region Laterality Modality Body, Pelvis, Abdomen Computed T omography Shefali BROOKS IMG CT PROCEDURES Edit ed Result - Final documented in this encounter Visit Diagnoses Not on filedocumented in this encounter Care Teams Clinic Mgr Relationship Specialty Start Date End Date Shefali Winston FNP PCP - General Family Medicine 12/02/22 08/24/24 Kanwal East DO [address] [place] [address] PCP - General Family Medicine 08/25/24 Sushila Griffin Community Health Worker 04/06/23 Jose Dunne LICSW Community Health Worker Case Management 01/08/24 02/19/24 documented as of this encounter
--- OUTSIDE RECORDS SUMMARY | 2025-03-15 16:49 | XMS_ITS | Encounter Summary ---
Author Organization [employer] [facility] Address [address] [place] [address] Care Team Providers Care Agricultural Adviser Name Role Phone Shefali Winston CECILIA Primary Care Provider Unavailable Sushila Griffin Unavailable Unavailable Jose Dunne Unavailable Unavail able Kanwal East DO Primary Care Provider [phone] Encounter Details Date Type Department Care Team (Late st Contact Info) Description 01/22/2024 Telephone [facility] [address] [place] [address] Jannette Yuan, LYNN Social History Tobacco Use Types Packs/Day Years [...] PM EDT documented as of this encounter Miscellaneous Notes * Telephone Encounter - Sandra Murray RN - 01/22/2024 2:46 PM EST Placed call to patient who reports that she is still passing dwain grit in urine as well as bigger pieces of stone. Reporting severe pain intermittently throughout the day, 7-07/09. Per pt, her urologist stated grit and pain could take 6-8 weeks to resolve completely. Pt has been pushing fluids. She reports that she can't be seen by urologist until 02/14. Scheduled for telephone visit with LOGAN byrne for pain management. Patient wincing on the phone. Scheduled for in-person evaluation of complications with KL 01/27. * Telephone Encounter - CECILIA Ko - 01/22/2024 2:30 PM EST Agreed. * Telephone Encounter - Jannette Yuan RN - 01/22/2024 12:51 PM EST Pt called requested a refill on her prescription oxyCODONE-acetaminophen oxyCODONE-acetaminophen (Percocet) 5-325 MG tablet. Routing to covering to advise. Can prescription be refilled or schedule an appt? documented in this encounter Plan of Treatment Upcoming Encounters Date Type Department Care Team (Late st Contact Info) Description 03/30/2025 9:30 AM EDT Telemedicine [facility] MEDICAL [address] [place] [address] Ning Chau CNP [address] [place] [address] documented as of this encounter Visit Diagnoses Not on filedocumented in this encounter Care Teams Agricultural Adviser Relationship Specialty Start Date End Date Shefali Winston FNP PCP - General Family Medicine 12/02/22 08/24/24 Kanwal East DO [address] [place] [address] PCP - General Family Medicine 08/25/24 Sushila Griffin Community Health Worker 04/06/23 Jose Dunne LICSW Community Health Worker Case Management 01/08/24 02/19/24 documented as of this encounter
--- OUTSIDE RECORDS SUMMARY | 2025-03-15 16:49 | XMS_ITS | Encounter Summary ---
Author Organization [employer] Address [address] [facility] 7t [place] [address] Care Team Providers Care Visual Merchandising Specialist Name Role Phone Sushila Griffin Unavailable Unavailable Kanwal East Primary Care Provider [phone] Encounter Details Date Type Department Care Team ([facility] st Contact Info) Description 03/15/2025 Patient Outreach [facility] Care [facility] (C[facility]) Department [address] [id number] Chaim Trujillo Social History Tobacco Use Types Packs/Day Years Used Date Smoking Tobacco: Every Day Cigarettes Passive Smoke Exposure: Current Smokeless Tobacco: Never Comments:States using nicoti ne patches now trying not to smoke when wearing Alcohol Use Standard Drinks/Week Comments Yes 0 (1 standard drink = 0.6 oz pur e alcohol) fernanda Alcohol Answer Date Recorded How often do you have a drink containing alcohol ? 0 11/17/2023 How many drinks containing a lcohol do you have on a typical day when you are drinking? 0 11/17/2023 How often do you have six or more drinks on one occasion? 0 11/17/2023 Depression Answer Date Recorded Patient Health Questionnaire-9 Score 23 11/09/2024 Patient Health Questionnaire-9 Score 23 11/09/2024 Last PHQ-9: Questionnaire Data Not on file 1 01/10/2024 Housing Stability Answer Date Recorded What is [...] Answer Date Recorded Patient Health Questionnaire-2 Score 6 11/09/2024 Education Answer Date Recorded What is the [...] PM EDT documented as of this encounter Progress Notes * Chaim Trujillo - 03/15/2025 1:28 PM EDT 3rd outreach call documented in this encounter Plan of Treatment Upcoming Encounters Date Type Department Care Team (Late st Contact Info) Description 03/30/2025 9:30 [place] [address] Ning Chau, JSEUS [address] [facility] [place] [address] documented as of this encounter Visit Diagnoses Not on filedocumented in this encounter Additional Health Concerns Assessment Noted Time PHQ-9 Depression Total Score: 23 024 3:58 PM EST documented as of this encounter Care Teams Visual Merchandising Specialist Relationship Specialty Start Date End Date Kanwal East DO [address] [facility] [place] [address] PCP - General Family Medicine 08/25/24 Sushila Griffin Community Health Worker 04/06/23 documented as of this encounter
--- OUTSIDE RECORDS SUMMARY | 2025-03-15 16:49 | XMS_ITS | Encounter Summary ---
Author Organization [facility] Address [address] [facility] [address] 7t [place] [address] Care Team Providers Care Switchboard Installer Name Role Phone Shefali Winston Primary Care Provider Unavailable Sushila Griffin Unavailable Unavailable Jose Dunne Unavailable Unavail able Kanwal East DO Primary Care Provider [phone] Encounter Details Date Type Department Care Team (Late st Contact Info) Description 11/17/2023 Orders Only [place] [facility] [address] [place] [address] Shefali Winston FNP Social History Tobacco Use [...] Info) Description 03/30/2025 9:30 AM EDT Telemedicine [facility] MEDICAL [address] [place] [address] Ning Chau CNP [address] [place] [address] documented as of this encounter Procedures Procedure Name Priority Date/Time Associated Diagnosis Comments URINE CALCIUM, RANDOM (W/O CREATININE) Routine 11/17/2023 5:24 PM EST OXALIC ACID, ADULT, URINE W/CREATININE Routine 11/17/2023 5:24 PM EST CREATININE, RANDOM URINE Routine 11/17/2023 5:[address] ABDOMEN PELVIS WO CONTRAST Routine 11/16/2023 documented in this encounter Results * Oxalic Acid, Adult, Urine with Creatinine (11/17/2023 5:24 PM EST) Oxalic Acid/Creatinin e Ratio 14.2 [facility] Comment: Reference range: 9.2 to 45.4 Unit: mg/g creat Test performed at [address] [address] Oxalates, Urine 14 [facility] Comment: Reference range: Undefined Unit: mg/L (NOTE) For proper preservation, the pH of urine for analysis of oxalate or citric acid must be <3.0. Specimen received was not preserved correctly, therefore results may be questionable. Test performed at [address] [address] Creatinine, Random Urine 98.8 [facility] Comment: Reference range: Not Estab. Unit: mg/dL Test performed by [facility], [address] [facility] [place] [address] Testing performed or reported by [facility], a Service of [facility], [facility] [place] [address] Bala Camp MD, Language And Literature Division Chair [facility]# [id number] 11/17/2023 5:24 PM EST 11/17/2023 10:40 PM EST us Kanwal East DO LAB URINE ORDERABLES Final Res ult [facility] [address] [place] [address] * Calcium, Random Urine without Creatinine (11/17/2023 5:24 PM EST) CALCIUM (MG/DL) IN URINE 14.8 MG/DL [facility] Comment: Testing performed or reported by [facility], a Service of [facility], [address] [place] [address] Bala Cmap MD, Language And Literature Division Chair CLIA# [id number] 11/17/2023 5:24 PM EST 11/17/2023 10:40 PM EST [facility] URINE ORDERABLES Final Res ult Performing Organization Address City/[facility]/ZIP Co de Phone Number [facility] [address] [place] [id number] * Creatinine, Random Urine (11/17/2023 5:24 PM EST) Creatinine, Ur 107.4 MG/DL [facility] Comment: Testing performed or reported by [facility], a Service of [facility], [address] [place] [address] Bala Camp MD, Language And Literature Division Chair CLIA# [id number] 11/17/2023 5:24 PM EST 11/17/2023 10:40 PM EST [facility] LAB URINE ORDERABLES Final Res ult Performing Organization Address [facility] Co de Phone Number [facility] [address] [place] [id number] * CT Abdomen Pelvis w/o Contrast (11/16/2023) Anatomical Region Laterality Modality Body, Pelvis, Abdomen Computed T omography Shefali BROOKS IMG CT PROCEDURES Edit ed Result - Final documented in this encounter Visit Diagnoses Not on filedocumented in this encounter Care Teams Switchboard Installer Relationship Specialty Start Date End Date Shefali Winston FNP PCP - General Family Medicine 12/02/22 08/24/24 Kanwal East DO [address] [place] [address] PCP - General Family Medicine 08/25/24 Sushila Griffin Community Health Worker 04/06/23 Jose Dunne, [facility] Community Health Worker Case Management 01/08/24 02/19/24 documented as of this encounter
--- OUTSIDE RECORDS SUMMARY | 2025-03-15 16:49 | XMS_ITS | Encounter Summary ---
Author Organization [facility] Address [address] 7[address] [place] [address] Care Team Providers Care Export Coordinator Name Role Phone Shefali Winston Primary Care Provider Unavailable Sushila Griffin Unavailable Unavailable Kanwal East DO Primary Care Provider [phone] Encounter Details Date Type Department Care Team (Late st Contact Info) Description 03/01/2024 Orders Only [place] [facility] [address] [place] [address] Shefali Winston FNP Social History Tobacco Use Types Packs/Day Years Used Date Smoking Tobacco: Every Day Cigarettes Passive Smoke Exposure: Current Smokeless Tobacco: Never Alcohol Use Standard Drinks/Week Comments Yes 0 [...] enough money to get more: Never True 10/ Transportation Answer Date Recorded In the past [...] Info) Description 03/30/2025 9:[address] [facility] MEDICAL [address] [place] [address] Ning Chau, JESUS [address] [place] [address] documented as of this encounter Procedures Procedure Name Priority Date/Time Associated Diagnosis Comments CT HEAD W CONTRAST Routine 02/29/2024 11:[address] HEAD WO CONTRAST Routine 02/29/2024 11:02 AM EDT ECG 12-LEAD Routine 02/29/2024 11:01 AM EDT documented in this encounter Results * CT Head w/ Contrast (02/29/2024 11:02 AM EDT) Anatomical Region Laterality Modality Head, Neck Computed Tomogra phy Shefali CAMPBELLP IMG CT PROCEDURES Meka l Result * CT Head w/o Contrast (02/29/2024 11:02 AM EDT) Anatomical Region Laterality Modality Head, Neck Computed Tomogra phy Shefali BROOKS IMG CT PROCEDURES Meka l Result * ECG 12 lead (02/29/2024 11:01 AM EDT) Shefali BROOKS ECG ORDERABLES Final Result documented in this encounter Visit Diagnoses Not on filedocumented in this encounter Care Teams Export Coordinator Relationship Specialty Start Date End Date Shefali Winston FNP PCP - General Family Medicine 12/02/22 08/24/24 Kanwal East DO [address] [place] [id number] PCP - General Family Medicine 08/25/24 Sushila Griffin Community Health Worker 04/06/23 documented as of this encounter
--- OUTSIDE RECORDS SUMMARY | 2025-03-15 16:49 | XMS_ITS ---
Author Organization [employer] [facility] Address [address] [place] [address] 7 [place] [address] Care Team Providers Care Auxiliary Equipment Tender Name Role Phone Sushila Griffin Unavailable Unavailable Kanwal East DO Primary Care Provider [phone] CH[facility] Complex Status:Outreach In Progress (Enrolling) Start date:03/03/2025 Enrollment reason:ADT Feed Case Team Name Relationship Phone Chaim Trujillo (Responsible Staff) Continued Care and Services Coordination
--- OUTSIDE RECORDS SUMMARY | 2025-03-15 16:49 | XMS_ITS | Encounter Summary ---
Author Organization [employer] [facility] Address [address] [facility] 7t [place] [address] Care Team Providers Care Sodium Methylate Operator Name Role Phone Shefali Winston Primary Care Provider Unavailable Sushila Griffin Unavailable Unavailable Kanwal East DO Primary Care Provider [phone] Reason for Visit * Reason Comments Med Change Request Encounter Details Date Type Department Care Team ([facility] st Contact Info) Description 06/17/2024 Dayo Yoo [facility] MEDICAL [address] [place] [address] Shefali Winston FNP Brain aneurysm Social History Tobacco Use Types Packs/Day Years [...] encounter Miscellaneous Notes * Telephone Encounter - Carmina Hayes RN - 07/11/2024 4:05 PM EDT Left message for pt to call back, ? Did she get her plavix rx. * Telephone Encounter - Carmina Hayes RN - 07/11/2024 4:04 PM EDT Images from the original note were not included. CECILIA Ko RN Caller: Unspecified (3 weeks ago) Can you help with this? She had surgery to repair a brain aneurysm and is supposed to remain on theplavix. documented in this encounter Plan of Treatment Upcoming Encounters Date Type Department Care Team (Late st Contact Info) Description 03/30/2025 9:30 AM EDT Telemedicine [facility] MEDICAL [address] [place] [address] iNng Chau, JESUS [address] [place] [address] documented as of this encounter Visit Diagnoses Diagnosis Brain aneurysm Cerebral aneurysm, nonruptured documented in this encounter Care Teams Sodium Methylate Operator Relationship Specialty Start Date End Date Shefali Winston FNP PCP - General Family Medicine 12/02/22 08/24/24 Kanwal East DO [address] [place] [address] PCP - General Family Medicine 08/25/24 Sushila Griffin Community Health Worker 04/06/23 documented as of this encounter
--- OUTSIDE RECORDS SUMMARY | 2025-03-15 16:49 | XMS_ITS | Continuity of Care Document ---
Author Organization [facility]. If a dditional information is needed, contact Health Information Management at [phone] Address [address] [place] [address] Phone Care Team Providers Care In Home Sales Representative Name Role Phone Unavailable Unavailable Unavailable Unavailable Unavailable Unavailable Unavailable Unavailable Unavailable Problems Hemorrhagic cyst of ovary Onset:24-Mar-2022 LOMMA2 Mental Status Cognitive function finding 23-Mar-2022 Allergies and Adverse Reactions Sulfa(Sulfonamide Antibiotic s)(Allergy) Onset: 23-Mar-2022 ciprofloxacin(Allergy) Onset: 23-Mar-2022 tramadol(Allergy) Onset: 23-Mar-2022 metoclopramide(Allergy) Onset: 23-Mar-2022 Medications cyclobenzaprine hydrochlorid e 10 MG Oral Tablet;10 MILLIGRAM PO TID PRN Start:23-Mar-2022 Comments:10 MG PO TID PRN As Needed for PAIN gabapentin 600 MG Oral Table t;600 MILLIGRAM PO QID Start:23-Mar-2022 Comments:600 MG PO QID Social History Smoking Status Smokes tobacco daily Recorded: 23-Mar-2022
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
--- OUTSIDE RECORDS SUMMARY | 2025-03-15 16:49 | XMS_ITS | Encounter Summary ---
Author Organization [employer] [facility] Address [address] [place] [address] Care Team Providers Care Orthodontic Treatment Coordinator Name Role Phone Shefali Winston HELP DESK ADMINISTRATOR Primary Care Provider Unavailable Sushila Griffin Unavailable Unavailable Jose Dunne Unavailable Unavail able Kanwal East DO Primary Care Provider [phone] Reason for Visit * Reason Comments Med Refill Encounter Details Date Type Department Care Team (Late st Contact Info) Description 06/27/2023 Refill [place] [facility] MED[facility] [address] [place] [address] Jannie Cabrera MD [address] [place] [address] Bilateral carpal tunnel syndrome Social History Tobacco Use Types Packs/Day Years Used Date Smoking Tobacco: Every Day Cigarettes Smokeless Tobacco: Never Alcohol Use Standard Drinks/Week Comments Never 0 (1 standard drink = 0.6 oz pur e alcohol) PHQ-2 Answer Date Recorded Patient Health Questionnaire-2 Score 0 06/10/2023 Depression Answer Date Recorded Patient Health Questionnaire-2 [...] encounter Miscellaneous Notes * Telephone Encounter - Gisell Claudia - 06/29/2023 8:51 AM EDT Pharmacy request [place] Last fill Date: 05/31/23 Last OV: 06/10/23 Next OV: today Last UTOX: 10/20/22 CSA Date: DNF Date: 05/30/23 documented in this encounter Plan of Treatment Upcoming Encounters Date Type Department Care Team (Late st Contact Info) Description 03/30/2025 9:30 AM EDT Telemedicine [facility] MEDICAL [address] [place] [address] Ning Chau, JESUS [address] [place] [address] documented as of this encounter Visit Diagnoses Diagnosis Bilateral carpal tunnel syndrome Carpal tunnel syndrome documented in this encounter Care Teams Orthodontic Treatment Coordinator Relationship Specialty Start Date End Date Shefali Winston FNP PCP - General Family Medicine 12/02/22 08/24/24 Kanwal East DO [address] [place] [address] PCP - General Family Medicine 08/25/24 Sushila Griffin Community Health Worker 04/06/23 Jose Dunne LICSW Community Health Worker Case Management 01/08/24 02/19/24 documented as of this encounter
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
== END 2025-03-15 14:04 | disposition home or self-care (01) ==
LOC: HO.LAB 14:03
PROVIDERS: Visit Provider Urology
DX: N20.0 Calculus of kidney (principal)
CPT/HCPCS: 81001; 87086

== ENCOUNTER 2025-04-14 15:59 | Outpatient (AMB) | payer MEDICAID, SELFPAY ==
--- NOTE | 2025-04-14 16:00 | MHC.OFFVIS ---
Intake Visit Reasons: litholink Intake Note: Patient is Present for litholink follow up Urology Medication: Tamsulosin, Vitamin B6 Antibiotic Allergies:Sulfa, Ciprofloxacin Blood Thinners:Plavix, Asprin Allergies ciprofloxacin Allergy (Severe, Verified 04/14/25 16:04) Vomiting metoclopramide (From Reglan) Allergy (Severe, Verified 04/14/25 16:04) Agitated tramadol Allergy (Intermediate, Verified 04/14/25 16:04) Hives Sulfa (Sulfonamide Antibiotics) Allergy (Mild, Verified 04/14/25 16:04) Family history HPI Comments Details: 04/14/25--Discussed 24 hour urine results collected:10/14/24-- Total volume 1.03 L, Calcium 241 mg; Oxalate 24 mg, Citrate 291 mg, Sodium 72. Instructed on importance of fluid intake. 08/08/24--Natasha is followed for nephrolithiasis. She has not completed 24 hour urine, states her mother threw it out by mistake. She has been in the emergency room in May and lost recently for the weekend. I reviewed CT scan results from May emergency room visit CTAP-multiple right renal calculi under 3 mm, left kidney no kidney stones. No hydronephrosis. The patient she had pain again on her right side and was passing a right kidney stone she states the checked another CT scan and told her that there were 2 stones in the right kidney. She states that since she was last seen in the office she had brain surgery for an aneurysm 03/19/2024 and is currently on blood thinners Plavix and aspirin. She is concerned about pain when she is passing stones, tamsulosin and 8 tablets oxycodone p.r.n. sent to pharmacy. 24 hour urine telehealth follow-up to review results. 02/15/2024--the patient is status post left ESWL on 01/06/2024. She is being evaluated for bilateral nephrolithiasis. States she is doing well. She has not had follow-up imaging as yet. I have discussed diet modification. Will start vitamin B6 100 mg. Plan metabolic workup, follow-up in 3 months, ultrasound, renal prior 12/18/2023--Natasha is a 38 year old female who is here for evaluation for kidney stones. The patient had multiple ED visits to [facility] due to flank pain. She complains of intermittent left flank pain. I reviewed [facility] records. Renal US - 11/19/23-- Right kidney - 4mm stone, Left kidney 4mm stone, no hydronephrosis. CTAP wo IV contrast 12/01/23 and 12/14/23-- small bilateral kidney stones L>R. Left Kidney 4mm lower pole stone. I have discussed ESWL. Discussed risks to include but not limited to, blood in the urine, bruising to the skin, kidney hematoma, possible need for another procedure if a stone fragment obstructs the ureter while passing, possible need to repeat procedure if stone is not completely fragmented. Plan:Left ESWL. KUB prior PFSH Medical History Smoker Hypertension History of blood transfusion Surgical History History of right oophorectomy History of hysterectomy History of carpal tunnel release [place] teeth extracted H/O lithotripsy Social History Patient Tobacco Use Status: Current everyday Tobacco user Tobacco use type: Cigarette Cigarette Packs Per Day: 0.5 Cigarettes Per Day: 10.0 Years Smoked: 20 Telehealth Telehealth Telehealth Platform: [employer] Location of provider rendering services: practice address Location of patient: address on file Patient Identification confirmed using: Name, : Yes Telehealth method: video Patient verbally consented to treatment: Yes Patient verbally consented to billing insurance company: Yes Patient informed of any privacy concerns related to visit: Yes Assessment & Plan Assessment & Plan (1) Flank pain: Code(s): R10.9 - Unspecified abdominal pain Category: Medical (2) Kidney stone: Code(s): N20.0 - Calculus of kidney Category: Medical (3) Renal colic: Code(s): N23 - Unspecified renal colic Category: Medical Plan Cont to monitor kidney stones, Diet management Patient Instructions: The patient had an opportunity to ask questions regarding treatment plan. The patient expressed understanding and agreement with the above treatment plan. The patient is aware they should contact our office by phone for worsening of their current condition or the appearance of new symptoms. Compliance is encouraged with any medications and followup testing that is ordered. It is a privilege to be allowed the opportunity to participate in the urologic care of your patient. If you have any questions or concerns regarding treatment for the above conditions please do not hesitate to contact me. The office telephone contact is [phone]. This note is constructed in part using voice recognition software. While every effort has been made to ensure accuracy medical transcription errors may have been included. Yours sincerely, Leslie Smith MD Coding Level of Care Code Tele Est Pt Level 3 (16923) Diagnoses Flank pain R10.9 Kidney stone N20.0 Renal colic N23
--- OUTSIDE RECORDS SUMMARY | 2025-04-14 16:01 | XMS_ITS | Encounter Summary ---
Author Organization [employer] Address [address] [place] [address] Care Team Providers Care Apartment Assistant Manager Name Role Phone Shefali Winston Primary Care Provider Unavailable Sushila Griffin Unavailable Unavailable Kanwal East DO Primary Care Provider [phone] Encounter Details Date Type Department Care Team (Late st Contact Info) Description 03/01/2024 Orders Only [facility] [address] [place] [address] Shefali Winston FNP Social History Tobacco Use [...] as of this encounter Plan of Treatment Not on file documented as of this encounter Procedures Procedure Name Priority Date/Time Associated Diagnosis Comments CT HEAD W CONTRAST Routine 02/29/2024 11:[address] HEAD WO CONTRAST Routine 02/29/2024 11:02 AM EDT ECG 12-LEAD Routine 02/29/2024 11:01 AM EDT documented in this encounter Results * CT Head w/ Contrast (02/29/2024 11:02 AM EDT) Anatomical Region Laterality Modality Head, Neck Computed Tomogra phy Shefali Odin-Schon TRAIN OPERATIONS MANAGER IMG CT PROCEDURES Meka l Result * CT Head w/o Contrast (02/29/2024 11:02 AM EDT) Anatomical Region Laterality Modality Head, Neck Computed Tomogra phy Shefali BROOKS IMG CT PROCEDURES Meka l Result * ECG 12 lead (02/29/2024 11:01 AM EDT) Shefali Winston [facility] ECG ORDERABLES Final Result documented in this encounter Visit Diagnoses Not on filedocumented in this encounter Care Teams Apartment Assistant Manager Relationship Specialty Start Date End Date Shefali Winston FNP PCP - General Family Medicine 12/02/22 08/24/24 Kanwal East DO [address] [place] [id number] PCP - General Family Medicine 08/25/24 Sushila Griffin Community Health Worker 04/06/23 documented as of this encounter
--- OUTSIDE RECORDS SUMMARY | 2025-04-14 16:01 | XMS_ITS | Encounter Summary ---
Author Organization [employer] Address [address] [place] [address] Care Team Providers Care Pet Feeder Name Role Phone Shefali Winston Primary Care Provider Unavailable Sushila Griffin Unavailable Unavailable Kanwal East DO Primary Care Provider [phone] Reason for Visit * Reason Comments Med Change Request Encounter Details Date Type Department Care Team ([facility] st Contact Info) Description 06/17/2024 Dayo Yoo [facility] [address] [place] [address] Shefali Winston FNP Brain aneurysm Social History [...] documented in this encounter Plan of Treatment Not on file documented as of this encounter Visit Diagnoses Diagnosis Brain aneurysm Cerebral aneurysm, nonruptured documented in this encounter Care Teams Pet Feeder Relationship Specialty Start Date End Date Shefali Winston FNP PCP - General Family Medicine 12/02/22 08/24/24 Kanwal East DO [address] [place] [id number] PCP - General Family Medicine 08/25/24 Sushila Griffin Community Health Worker 04/06/23 documented as of this encounter
--- OUTSIDE RECORDS SUMMARY | 2025-04-14 16:01 | XMS_ITS | Encounter Summary ---
Author Organization [employer] Address [address] [place] [address] Care Team Providers Care Operating Cost Clerk Name Role Phone Shefali Winston Primary Care Provider Unavailable Sushila Griffin Unavailable Unavailable Jose Dunne Unavailable Unavail able Kanwal East DO Primary Care Provider [phone] Encounter Details Date Type Department Care Team (Late st Contact Info) Description 11/17/2023 Orders Only [facility] [address] [place] [address] Shefali Winston FNP Social History Tobacco Use [...] PM EST) Oxalic Acid/Creatinin e Ratio 14.2 [facility] Comment: Reference range: 9.2 to 45.4 Unit: mg/g creat Test performed at [facility], [address] [place] [address] Oxalates, Urine 14 [facility] Comment: Reference range: Undefined Unit: mg/L (NOTE) For proper preservation, the pH of urine for analysis of oxalate or citric acid must be <3.0. Specimen received was not preserved correctly, therefore results may be questionable. Test performed at [facility], [address] [place] [address] Creatinine, Random Urine 98.8 [facility] Comment: Reference range: Not Estab. Unit: mg/dL Test performed by [facility], [address] [place] [address] Testing performed or reported by [facility], a Service of [facility], [facility] [place] [address] Bala Camp MD, [employer] CLIA# [id number] 11/17/2023 5:24 PM EST 11/17/2023 10:40 PM EST [facility] URINE ORDERABLES Final Res ult [facility] [address] [place] [phone] * Calcium, Random Urine without Creatinine (11/17/2023 5:24 PM EST) CALCIUM (MG/DL) IN URINE 14.8 MG/DL [facility] Comment: Testing performed or reported by [facility] [employer], a Service of [facility], [address] [place] [id number] Bala Camp MD, [employer] CLIA# [id number] 11/17/2023 5:24 PM EST 11/17/2023 10:40 PM EST us Kanwal Cruzito DO LAB URINE ORDERABLES Final Res ult Performing Organization Address City/[facility]/ZIP Co de Phone Number [facility] [address] [place] [address] * Creatinine, Random Urine (11/17/2023 5:24 PM EST) Creatinine, Ur 107.4 MG/DL [facility] Comment: Testing performed or reported by [facility], a Service of [facility], [address] [place] [address] Bala Camp MD, [employer] [facility]# [id number] 11/17/2023 5:24 PM EST 11/17/2023 10:40 PM EST Kanwal Cruzito LAB URINE ORDERABLES Final Res ult Performing Organization Address [facility] Co de Phone Number [facility] [address] [place] [phone] * CT Abdomen Pelvis w/o Contrast (11/16/2023) Anatomical Region Laterality Modality Body, Pelvis, Abdomen Computed T omography Shefali BROOKS IMG CT PROCEDURES Edit ed Result - Final documented in this encounter Visit Diagnoses Not on filedocumented in this encounter Care Teams Operating Cost Clerk Relationship Specialty Start Date End Date Shefali Winston FNP PCP - General Family Medicine 12/02/22 08/24/24 Kanwal East DO [address] [place] [id number] PCP - General Family Medicine 08/25/24 Sushila Griffin Community Health Worker 04/06/23 Jose Dunne LICSW Community Health Worker Case Management 01/08/24 02/19/24 documented as of this encounter
--- OUTSIDE RECORDS SUMMARY | 2025-04-14 16:01 | XMS_ITS | Encounter Summary ---
Author Organization [employer] Address [address] [place] [address] Care Team Providers Care Manager Web Application Name Role Phone Sushila Griffin Unavailable Unavailable Kanwal East DO Primary Care Provider [phone] Reason for Visit * Reason Onset Date Comments Med Refill 04/12/2025 Appointment 04/12/2025 Encounter Details Date Type Department Care Team ([facility] st Contact Info) Description 04/12/2025 Refill Fredo [facility] [address] [place] [address] Kanwal East DO [address] [place] [address] Resistant hypertension Social History Tobacco Use Types Packs/Day Years [...] encounter Miscellaneous Notes * Telephone Encounter - Dayna Velasco RN - 04/13/2025 12:53 PM EDT Spoke with patient. Aware of Amlodipine refill and need to schedule follow up appointments. Patientdeclined to schedule at this time as she does not have her work schedule . She reports she missed her appointment with Ning Chau due to work. She said she attempted to call but was unable to getthrough. She will call back to schedule needed appointment. Attempt to schedule f/u with PCP. Patient said she no longer wishes to see PCP and is looking for new one that will take her insurance. * Telephone Encounter - Ning Chau CNP - 04/12/2025 6:02 PM EDT Not sure why refill sent to me as [place] pt but did send as pt out, please coordinate routine follow upfor medical concerns as well as needs tor reschedule [facility] follow up for anxiety and depression with me as no show last appt, thanks * Telephone Encounter - Romana Ray MA - 04/12/2025 4:15 PM EDT Please be advised. * Telephone Encounter - [place] - 04/12/2025 2:40 PM EDT Patient called for refill of the following medication amLODIPine (Norvasc) 10 MG tablet Please use the following pharmacy [facility]/pharmacy #[id number] - [place], [place] - [address] [place], [place] [id number] JUANITO #: [id number] Patient is currently out of this medication documented in this encounter Plan of Treatment Not on file documented as of this encounter Visit Diagnoses Diagnosis Resistant hypertension documented in this encounter Additional Health Concerns Assessment Noted Time PHQ-9 Depression Total Score: 23 12/2 024 3:58 PM EST documented as of this encounter Care Teams Manager Web Application Relationship Specialty Start Date End Date Kanwal East DO [address] [place] [address] PCP - General Family Medicine 08/25/24 Sushila Griffin Community Health Worker 04/06/23 documented as of this encounter
--- OUTSIDE RECORDS SUMMARY | 2025-04-14 16:01 | XMS_ITS | Encounter Summary ---
Author Organization [employer] Address [address] [place] [address] Care Team Providers Care Media Technician Name Role Phone Juan AntonioMelissa Mccurdysela FILTER PLANT SUPERVISOR Primary Care Provider Unavailable Sushila Griffin Unavailable Unavailable Jose Dunne Unavailable Unavail able Kanwal East DO Primary Care Provider [phone] Reason for Visit * Reason Comments Med Refill Encounter Details Date Type Department Care Team (Late st Contact Info) Description 06/27/2023 Refill Fredo [facility] [address] [place] [address] Jannie Cabrera MD [address] [place] [address] Bilateral carpal tunnel syndrome Social History Tobacco [...] syndrome documented in this encounter Care Teams Media Technician Relationship Specialty Start Date End Date Shefali Winston FNP PCP - General Family Medicine 12/02/22 08/24/24 Kanwal East DO [address] [place] [id number] PCP - General Family Medicine 08/25/24 Sushila Griffin Community Health Worker 04/06/23 Jose Dunne LICSW Community Health Worker Case Management 01/08/24 02/19/24 documented as of this encounter
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
--- OUTSIDE RECORDS SUMMARY | 2025-04-14 16:01 | XMS_ITS | Continuity of Care Document ---
Author Organization [facility]. If a dditional information is needed, contact Health Information Management at [phone] Address [address] [place] [address] Phone Care Team Providers Care Clothes Model Name Role Phone Unavailable Unavailable Unavailable Unavailable [...]
--- OUTSIDE RECORDS SUMMARY | 2025-04-14 16:01 | XMS_ITS | Encounter Summary ---
Author Organization [employer] Address [address] [place] [address] Care Team Providers Care Facility Practice Specialist Name Role Phone Shefali Winston Primary Care Provider Unavailable Sushila Griffin Unavailable Unavailable Jose Dunne Unavailable Unavail able Kanwal East DO Primary Care Provider [phone] Encounter Details Date Type Department Care Team (Late st Contact Info) Description 12/15/2023 Orders Only [facility] [address] [place] [address] Shefali Winston FNP Social History Tobacco Use [...] Venous blood specimen / Unknown Shefali Winston [facility] LAB BLOOD ORDERABLES E dited Result - Final * Comprehensive Metabolic Panel (12/14/2023) Blood Venous blood specimen / Unknown Shefali [facility] LAB BLOOD ORDERABLES E dited Result - Final documented in this encounter Visit Diagnoses Not on filedocumented in this encounter Care Teams Facility Practice Specialist Relationship Specialty Start Date End Date Shefali Winston FNP PCP - General Family Medicine 12/02/22 08/24/24 Kanwal East DO [address] [place] [id number] PCP - General Family Medicine 08/25/24 Sushila Griffin Community Health Worker 04/06/23 Jose Dunne LICSW Community Health Worker Case Management 01/08/24 02/19/24 documented as of this encounter
--- OUTSIDE RECORDS SUMMARY | 2025-04-14 16:01 | XMS_ITS ---
Author Organization [employer] Address [address] [place] [address] Care Team Providers Care Labor Relations Manager Name Role Phone Sushila Griffin Unavailable Unavailable Kanwal East DO Primary Care Provider [phone] CHW Complex Status:Outreach In Progress (Enrolling) Start date:03/03/2025 Enrollment reason:ADT Feed Case Team Name Relationship Phone Chaim Trujillo(Responsible Staff) [phone] Continued Care and Services Coordination
--- OUTSIDE RECORDS SUMMARY | 2025-04-14 16:01 | XMS_ITS | Encounter Summary ---
Author Organization [employer] Address [address] [place] [address] Care Team Providers Care Exercise Planner Name Role Phone Shefali Winston Primary Care Provider Unavailable Sushila Griffin Unavailable Unavailable Jose Dunne Unavailable Unavail able Kanwal East DO Primary Care Provider Encounter Details Date Type Department Care Team (Late st Contact Info) Description 12/16/2023 Orders Only [facility] [address] [place] [address] Shefali Winston FNP Social History Tobacco Use [...] Modality Body, Pelvis, Abdomen Computed T omography us Shefali Winston CATHETER BUILDER IMG CT PROCEDURES Edit ed Result - Final documented in this encounter Visit Diagnoses Not on filedocumented in this encounter Care Teams Exercise Planner Relationship Specialty Start Date End Date Shefali Winston FNP PCP - General Family Medicine 12/02/22 08/24/24 Kanwal East DO [address] [place] [id number] PCP - General Family Medicine 08/25/24 Sushila Griffin Community Health Worker 04/06/23 Jose Dunne ASBESTOS CEMENT SHEET SUPERVISOR Community Health Worker Case Management 01/08/24 02/19/24 documented as of this encounter
--- OUTSIDE RECORDS SUMMARY | 2025-04-14 16:01 | XMS_ITS | Encounter Summary ---
Author Organization [employer] Address [address] [place] [address] Care Team Providers Care Oracle Soa Architect Name Role Phone Shefali Winston Primary Care Provider Unavailable Sushila Griffin Unavailable Unavailable Kanwal East DO Primary Care Provider [phone] Encounter Details Date Type Department Care Team (Late st Contact Info) Description 08/22/2024 Orders Only [facility] [address] [place] [address] Shefali Winston FNP Social History Tobacco Use [...] Body, Pelvis, Abdomen Computed T omography Shefali CAMPBELLP IMG CT PROCEDURES Meka l Result documented in this encounter Visit Diagnoses Not on filedocumented in this encounter Care Teams [employer] Soa Architect Relationship Specialty Start Date End Date Shefali Winston FNP PCP - General Family Medicine 12/02/22 08/24/24 Kanwal East DO [address] [place] [address] PCP - General Family Medicine 08/25/24 Sushila Griffin Community Health Worker 04/06/23 documented as of this encounter
--- OUTSIDE RECORDS SUMMARY | 2025-04-14 16:01 | XMS_ITS | Encounter Summary ---
Author Organization [employer] Address [address] [place] [address] Care Team Providers Care Manager Human Capital Name Role Phone OdinShefali Gonsalez ASSET CARD CLERK Primary Care Provider Unavailable Sushila Griffin Unavailable Unavailable Jose Dunne Unavailable Unavail able Kanwal East DO Primary Care Provider Encounter Details Date Type Department Care Team (Late st Contact Info) Description 01/22/2024 Telephone [facility] [address] [place] [address] Jannette Yuan, LYNN Social History Tobacco Use [...] until 02/14. Scheduled for telephone visit with TF tonight for pain management. Patient wincing on the [...] on filedocumented in this encounter Care Teams Manager Human Capital Relationship Specialty Start Date End Date Shefali Winston FNP PCP - General Family Medicine 12/02/22 08/24/24 Kanwal East DO [address] [place] [id number] PCP - General Family Medicine 08/25/24 Sushila Griffin Community Health Worker 04/06/23 Jose Dunne LICSW Community Health Worker Case Management 01/08/24 02/19/24 documented as of this encounter
--- OUTSIDE RECORDS SUMMARY | 2025-04-14 16:01 | XMS_ITS | Clinical Summary ---
Author Organization [facility] Address [address] [address] Phone Care Team Providers Care Lead Cashier Name Role Phone Shefali Winston Primary Care [...] Overview (03/10/2024): Established with Urology Dr. Smith [facility]. S/p L side extracorporeal shock wave [...] her fioricet) and very elevated bp at [facility]'s visit at 194/129 Natasha states will have her bring her to the ER ([place] where they know her) [facility]. Encouraged Natasha to bring all med bottles with her, let the triage staff know she is having both the prolonged BRIGGS and kidney stone pain and what her bp reading was at home for [facility]'s visit, warranting acute care setting evaluation and [...] in a car on 08/27/23, taken to [place] ED by EMS; responded to 12mg of Naloxone. Acquired absence of both cervix and uterus 12/02/2022 07/17/2023 03/09/2024 Acquired absence of other genital organ 12/02/2022 0 07/17/2023 03/09/2024 Allergic rhinitis 12/02/2022 07/17/2023 03/09/2024 Bilateral carpal tunnel syndrome 12/02/2022 07/17/2003/09/2024 Back pain 12/02/2022 07/17/2023 03/09/2024 Overview (07/17/2023): Last Assessment & Plan: Will call pain clinic again in [place] to reestablish care Depressive disorder 12/02/2022 07/17/2023 [...] Insurance Medicaid MD Medicaid MD Care Teams Lead Cashier Relationship Specialty Start Date End Date Shefali Winston FNP [address] [place] [id number] PCP - General Nurse Practitioner 06/12/23
== END 2025-04-14 16:30 | disposition home or self-care (01) ==
LOC: HO.HUSH 15:59
PROVIDERS: Visit Provider Urology
DX: N20.0 Calculus of kidney (principal); N23 Unspecified renal colic
CPT/HCPCS: 99213